=== PATIENT | female | born 1980 | race Caucasian/White ===

== ENCOUNTER 2016-06-24 12:47 | Emergency (ER) ==
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
[2016-06-24] MEDS ORDERED: ATIVAN PO ONE (13:12)
[2016-06-24 15:10] VITALS: BP 157/90
--- NOTE | 2016-06-25 05:21 | EKG Report ---
Test Performed on : 06/24/2016 12:53:07 PM Test Reason : chest pain Blood Pressure : / mmHG Vent. Rate : 089 BPM Atrial Rate : 089 BPM P-R Int : 132 ms QRS Dur : 084 ms QT Int : 354 ms P-R-T Axes : 032 055 048 degrees QTc Int : 430 ms Normal sinus rhythm. Nonspecific T wave abnormality Abnormal ECG No previous ECGs available Unconfirmed Result
== END 2016-06-24 15:16 | disposition home or self-care (01) ==
LOC: ED 12:47
DX: F41.9 Anxiety disorder, unspecified (principal); F32.9 Major depressive disorder, single episode, unspecified; R94.31 Abnormal electrocardiogram [ECG] [EKG]; R21 Rash and other nonspecific skin eruption; R60.0 Localized edema; J44.9 Chronic obstructive pulmonary disease, unspecified; E07.9 Disorder of thyroid, unspecified; Z79.899 Other long term (current) drug therapy
CPT/HCPCS: 93005